=== PATIENT | female | born 1955 | race American Indian/Alaskan Native ===

== ENCOUNTER 2017-02-03 19:52 | Inpatient (IN) | payer BC, MEDICARE ==
--- NOTE | 2017-02-03 19:56 | C.PDOC ---
History Of Present Illness Patient presents to the ER with a complaint of intermittent chest pain since this morning. Patient was recently treated for bronchitis and reports having a cough with chest pain; due to these symptoms the patient called 911. Patient was given 1 sublingual nitrate and 1 325 aspirin in the field; ALS sent an EKG that showed sinus tachycardia with nonspecific changes. Patient denies fever, chills or other physical complaints at this time. Time Seen by Provider: 02/03/17 19:56 Chief Complaint (Nursing): Shortness Of Breath History Per: Patient, EMS History/Exam Limitations: no limitations Onset/Duration Of Symptoms: Hrs Current Symptoms Are (Timing): Still Present Initiating Event: Other (Not known) Exacerbating Factor(s): Coughing Current Respiratory Medications: See Home Med List Severity: Moderate Pain Scale Rating Of: 4 Associated Symptoms: Chest Pain, Other (Cough). denies: Fever, Chills Recent travel outside of the [place]: No Past Medical History Reviewed: Historical Data, Nursing Documentation, Vital Signs Vital Signs: Last Vital Signs Temp 99.1 F 02/03/17 19:55 Pulse 121 H 02/03/17 22:00 Resp 32 H 02/03/17 22:00 BP 206/100 H 02/03/17 22:00 Pulse Ox 98 02/03/17 22:00 - Medical History PMH: No Chronic Diseases Surgical History: No Surg Hx Family History: States: No Known Family Hx Review Of Systems Constitutional: Negative for: Fever, Chills Eyes: Negative for: Vision Change Cardiovascular: Positive for: Chest Pain Respiratory: Positive for: Cough Gastrointestinal: Negative for: Nausea, Vomiting Genitourinary: Negative for: Dysuria, Incontinence, Hematuria Musculoskeletal: Negative for: Shoulder Pain, Arm Pain, Back Pain Skin: Negative for: Rash Neurological: Negative for: Weakness, Numbness Physical Exam - Physical Exam Appears: Non-toxic, Other (Morbidly obese) Skin: Warm, Dry Oral Mucosa: Moist Chest: Symmetrical, Tenderness (Mild reproducible anterior wall) Cardiovascular: Rhythm Regular, No Murmur Respiratory: No Rales, Rhonchi (Scattered at bases), No Wheezing Gastrointestinal/Abdominal: Soft, No Tenderness Neurological/Psych: Oriented x3 ED Course And Treatment - Laboratory Results Result Diagrams: 02/03/17 20:08 02/03/17 20:08 ECG: Interpreted By Me, Viewed By Me ECG Rhythm: Sinus Tachycardia (119), Nonspecific Changes (lvh) O2 Sat by Pulse Oximetry: 100 Pulse Ox Interpretation: Normal - Radiology CXR: Interpreted by Me, Viewed By Me CXR Interpretation: Yes: Other (top nl heart, poss lll infiltrate, small b/l effusions). No: COPD, Fracture, Pnemothorax Progress Note: spoke with dr farmer at 7:48 PM, as well as sent the ekg. Repeat ekg sent to him as well. Pt does not meet criteria for code heart. Blood work , CXR, EKG and urinalysis ordered. Duoneb administered. Critical Care Time - Critical Care Note Total Time (in mins): 30 Documented critical care: time excludes all time spent performing seperately billable procedures. Disposition Discussed With DrJohn: Mt Perdomo Comment: accepted the pt on his service and took over the care at 10:12 PM Doctor Will See Patient In The: Hospital Counseled Patient/Family Regarding: Studies Performed, Diagnosis - Disposition Disposition: HOSPITALIZED Disposition Time: 19:56 Condition: FAIR - POA Present On Arrival: Poor Glycemic Control - Clinical Impression Clinical Impression: Chest pain - Scribe Statement The provider has reviewed the documentation as recorded by the Scribe Hao Strauss All medical record entries made by the Scribe were at my direction and personally dictated by me. I have reviewed the chart and agree that the record accurately reflects my personal performance of the history, physical exam, medical decision making, and the department course for this patient. I have also personally directed, reviewed, and agree with the discharge instructions and disposition. Decision To Admit - Pt Status Changed To: Hospital Disposition Of: Observation - . Bed Request Type: Telemetry Admitting Physician: Mt Perdomo Patient Diagnosis: Chest pain
[2017-02-03 20:00] VITALS: BMI 43.2
[2017-02-03 20:12] LABS: BASO % 0.3 % (0.0-2.0); EOS # 0.2 K/uL (0.0-0.7); EOS % 1.7 % (0.0-4.0); HEMATOCRIT 37.4 % (34.0-47.0); LYMPH # 1.2 K/uL (1.0-4.3); LYMPH % 11.9 % (20.0-40.0); MEAN CELL VOLUME 89.2 fL (81.0-99.0); MEAN CORPUSCULAR HGB CONC 32.6 g/dL (33.0-37.0); MEAN PLATELET VOLUME 7.1 fL (7.2-11.7); MONO # 0.7 K/uL (0.0-0.8); NRBC % 0.2 % (0.0-2.0); RED CELL DISTRIBUTION WIDTH 15.5 % (11.5-14.5); WHITE BLOOD COUNT 9.7 K/uL (4.8-10.8)
[2017-02-03] MEDS: Albuterol-Ipratrop 3 mg / 0.5 (3 ml) UD IH SCH ×3 (20:15→20:50)
[2017-02-03] MEDS ORDERED: Albuterol-Ipratrop 3 mg / 0.5 (3 ml) UD ONE (20:18)
[2017-02-03 20:21] LABS: INR 1.1
[2017-02-03 20:32] LABS: VENOUS BLOOD GAS BASE EXCESS 3.3 mmol/L (0.0-2.0); VENOUS BLOOD GAS PCO2 41 mmHg (40-60); VENOUS BLOOD PH 7.44 (7.32-7.43)
[2017-02-03 20:36] LABS: CHLORIDE 104 mmol/L (98-107)
[2017-02-03 20:37] LABS: POTASSIUM 3.2 mmol/L (3.6-5.2); SODIUM 140 mmol/L (132-148)
[2017-02-03 20:39] LABS: BILIRUBIN,TOTAL 0.5 mg/dL (0.2-1.3); CARBON DIOXIDE 25 mmol/L (22-30); GFR AFRICAN-AMERICAN > 60
[2017-02-03 20:40] LABS: ALB/GLOB RATIO 1.3 (1.0-2.1); ALKALINE PHOSPHATASE 98 U/L (38-126); ALT/SGPT 41 U/L (9-52); AST/SGOT 26 U/L (14-36); BLOOD UREA NITROGEN 18 mg/dL (7-17); CALCIUM 9.7 mg/dl (8.6-10.4); GLUCOSE,RANDOM 113 mg/dL (65-105); TOTAL PROTEIN 7.4 g/dL (6.3-8.3)
[2017-02-03 20:41] LABS: RBC URINE 6 /hpf (0-3); URINE BACTERIA OCC (<OCC); URINE BILIRUBIN NEGATIVE (NEGATIVE); URINE BLOOD 1+ (NEGATIVE); URINE COLOR Straw (YELLOW); URINE GLUCOSE (UA) NORMAL (Normal); URINE KETONE NEGATIVE (NEGATIVE); URINE LEUKOCYTE ESTERASE 3+ Leu/uL (Negative); URINE PROTEIN NEGATIVE (NEGATIVE); URINE UROBILINOGEN NORMAL mg/dL (0.2-1.0); WBC URINE 14 /hpf (0-5)
[2017-02-03] MEDS ORDERED: Labetalol 25mg/5ml Syringe IVP STA (21:55)
[2017-02-03] MEDS ORDERED: Labetalol 25mg/5ml Syringe ONE (21:59)
[2017-02-03] MEDS ORDERED: Enoxaparin 40 mg Syringe SC STA (22:11)
[2017-02-03] MEDS ORDERED: Enoxaparin 60 mg Syringe ONE (22:15)
[2017-02-03] MEDS ORDERED: Nitroglycerin 2% Ointment Foilpak UD TOP STA (22:50)
[2017-02-03] MEDS ORDERED: Nitroglycerin 2% Ointment Foilpak UD TOP ONE (22:53)
--- NOTE | 2017-02-03 23:21 | CP.PCM.HP ---
History of Present Illness - History of Present Illness History of Present Illness: Cheif complain: Chest pain HPI: 61 year old female patient presents to the ER with a complaint of intermittent chest pain since this morning. Patient was recently treated for bronchitis and reports having a cough with chest pain; due to these symptoms the patient called 911. Patient was given 1 sublingual nitrate and 1 325 aspirin in the field; ALS sent an EKG that showed sinus tachycardia with nonspecific changes. Patient denies fever, chills or other physical complaints at this time. Past Patient History - Past Social History Smoking Status: Light Smoker < 10 Cigarettes Daily - CARDIAC Hx Hypertension: Yes - PULMONARY Hx Asthma: No Hx Bronchitis: Yes - NEUROLOGICAL Hx Neurological Disorder: No - HEENT Hx HEENT Problems: No - RENAL Hx Chronic Kidney Disease: No - ENDOCRINE/METABOLIC Hx Endocrine Disorders: No - HEMATOLOGICAL/ONCOLOGICAL Hx Blood Disorders: No - INTEGUMENTARY Hx Dermatological Problems: No - MUSCULOSKELETAL/RHEUMATOLOGICAL Hx Musculoskeletal Disorders: No Hx Arthritis: Yes - GASTROINTESTINAL Hx Gastrointestinal Disorders: No - GENITOURINARY/GYNECOLOGICAL Hx Genitourinary Disorders: No - PSYCHIATRIC Hx Psychophysiologic Disorder: No Hx Substance Use: No Meds Allergies/Adverse Reactions: Allergies Allergy/AdvReac Type Severity Reaction Status Date / Time No Known Allergies Allergy Verified 02/03/17 19:59 Results - Vital Signs Recent Vital Signs: Last Vital Signs Temp 99.1 F 02/03/17 19:55 Pulse 95 H 02/03/17 23:20 Resp 39 H 02/03/17 23:20 BP 194/95 H 02/03/17 23:20 Pulse Ox 100 02/03/17 23:20 - Labs Result Diagrams: 02/03/17 20:08 02/03/17 20:08
[2017-02-04] MEDS ORDERED: Nitroglycerin 2% Ointment Foilpak UD TOP STA (01:34)
[2017-02-04] MEDS ORDERED: Albuterol-Ipratrop 3 mg / 0.5 (3 ml) UD INH STA (01:35)
--- NOTE | 2017-02-04 01:39 | PCM.RRTMUL ---
SYSTEMS ANALYST ENGINEER Nurses Assessment - Situation SYSTEMS ANALYST ENGINEER Responder Arrival Time:: 01:22 Room Number:: [id number] SYSTEMS ANALYST ENGINEER Reason for Call: Chest Pain, Hypertension - IV IV Inserted during SYSTEMS ANALYST ENGINEER?: No - Respiratory Oxygen Delivery Method:: Nasal Cannula Received Nebulizer Treatments:: Yes - Diagnostic Test Ordered EKG:: Yes - Stat Labs Ordered SYSTEMS ANALYST ENGINEER Stat Labs Ordered:: TROPONIN - Vital Signs Blood Pressure:: 229/114 (repeat 207/104) Pulse Rate:: 97 Oxygen Saturation:: 100 - Kat Coma Scale Coma Scale Eye Opening:: Spontaneous Coma Scale Motor:: Obeys Commands Movement - B) Neurological Status (Select all that apply): Alert, Responsive, Oriented, Verbal, Follows Commands - C) Respiratory Oxygen Delivery Method: Nasal Cannula @L/min - Constitutional Appears: Non-toxic, In Acute Distress - Head Head Exam: ATRAUMATIC, NORMAL INSPECTION - Eyes Eye Exam: EOMI, Normal appearance, PERRL - Respiratory Exam Respiratory Exam: Wheezes. absent: Respiratory Distress - Cardiovascular Exam Cardiovascular Exam: Tachycardia, REGULAR RHYTHM, +S1, +S2 - GI/Abdominal Exam GI & Abdominal Exam: Soft, Normal Bowel Sounds. absent: Distended, Firm, Guarding, Tenderness - Neurological Exam Neurological Exam: Alert, Awake, Oriented x3 Plan - B. Assessment of Findings&Treatment Plan Patient was complaints of chest pain and headache which she states she had on admission. Denied visual changes. EKG - slight depression in V4-V6 f/u VIET Nitro 2% paste given x 1 dose. Repeat BP 190s. Repeat 185/97. Patient given Hydralazine 10mg IVP. Will monitor. Patient was noted to be wheezing. Was given stat Duoneb treatment. K was low 3.2. Replaced with 40 meq KCL solution x 1 dose. Patient noted to have UTI by UA. Urine culture sent. Complains of urinary frequency x 1 day. Denies dysuria
[2017-02-04] MEDS ORDERED: Potassium Chloride 20 mEq/15 ml LIQ UD PO ONE (01:50)
[2017-02-04] MEDS: DiphenhydrAMINE 50 mg/ml Inj IVP STA ×2 (02:04→02:06)
[2017-02-04] MEDS: Albuterol-Ipratrop 3 mg / 0.5 (3 ml) UD INH PRN ×2 (03:49→07:59)
[2017-02-04] MEDS ORDERED: Labetalol 25mg/5ml Syringe IVP STA (05:16)
[2017-02-04] MEDS ORDERED: guaiFENesin DM 200 mg-20 mg/10 ml UD PO STA (06:09)
[2017-02-04 08:45] LABS: CHLORIDE 102 mmol/L (98-107)
[2017-02-04] MEDS ORDERED: MethylPREDNISolone 40 mg Vial IVP ONE (08:45)
[2017-02-04 08:46] LABS: POTASSIUM 3.7 mmol/L (3.6-5.2); SODIUM 138 mmol/L (132-148)
--- NOTE | 2017-02-04 08:47 | RAD ---
PROCEDURE: CHEST RADIOGRAPH, 1 VIEW HISTORY: chest pain COMPARISON: None available. FINDINGS: LUNGS: Moderate venous congestion with bibasilar airspace opacities and small bilateral pleural effusions. PLEURA: As above. CARDIOVASCULAR: Cardiomegaly. OSSEOUS STRUCTURES: Degenerative changes in the spine and shoulders. VISUALIZED UPPER ABDOMEN: Normal. OTHER FINDINGS: None. IMPRESSION: Moderate venous congestion with bibasilar airspace opacities and small bilateral pleural effusions.
[2017-02-04 08:48] LABS: CARBON DIOXIDE 26 mmol/L (22-30); GFR AFRICAN-AMERICAN > 60
[2017-02-04 08:49] LABS: BLOOD UREA NITROGEN 13 mg/dL (7-17); CALCIUM 8.8 mg/dl (8.6-10.4); GLUCOSE,RANDOM 164 mg/dL (65-105)
[2017-02-04] MEDS: Pantoprazole 40 mg EC Tab PO SCH (09:46)
[2017-02-04] MEDS: Enoxaparin 40 mg Syringe SC SCH (09:48)
[2017-02-04] MEDS: Albuterol-Ipratrop 3 mg / 0.5 (3 ml) UD INH SCH ×2 (13:22→19:00)
[2017-02-04] MEDS: MethylPREDNISolone 40 mg Vial IVP SCH ×2 (14:02→21:39)
[2017-02-04] MEDS ORDERED: Azithromycin 500mg/250ML NS 500 MG/250 ML BAG IVPB SCH (14:15)
[2017-02-04] MEDS: Azithromycin 500 MG in Sodium Chloride 0.9% 250 ML IVPB SCH (15:16)
[2017-02-04] MEDS: Promethazine DM 6.25 mg-15 mg/5 ml Syrup PO PRN ×2 (15:17→21:39)
--- NOTE | 2017-02-04 19:58 | CP.PCM.CON ---
History of Present Illness - History of Present Illness History of Present Illness: 61 year old with HTN, ? COPD presented through the ED with SOB, atypical pain, non significant EKG changes, f/u with [facility], EKG echo. Prior history of rheumatoid arthritis, smoker. Explains the pain gets relieved by drinking water and taking stomach medication Review of Systems - Review of Systems Systems not reviewed;Unavailable: Acuity of Condition - Constitutional Constitutional: Anorexia, Weakness - EENT Eyes: absent: Discharge, Exophthalmos Nose/Mouth/Throat: Nasal Congestion. absent: Epistaxis - Cardiovascular Cardiovascular: Chest Pain. absent: Acrocyanosis, Diaphoresis, Dyspnea, Palpitations, Syncope - Respiratory Respiratory: Cough. absent: Dyspnea, Hemoptysis - Gastrointestinal Gastrointestinal: absent: Abdominal Pain, Diarrhea, Loose Stools, Nausea, Vomiting - Genitourinary Genitourinary: absent: Change in Urinary Stream Past Patient History - Past Social History Smoking Status: Never Smoked - CARDIAC Hx Hypertension: Yes - PULMONARY Hx Asthma: No Hx Bronchitis: Yes - NEUROLOGICAL Hx Neurological Disorder: No - HEENT Hx HEENT Problems: No - RENAL Hx Chronic Kidney Disease: No - ENDOCRINE/METABOLIC Hx Endocrine Disorders: No - HEMATOLOGICAL/ONCOLOGICAL Hx Blood Disorders: No - INTEGUMENTARY Hx Dermatological Problems: No - MUSCULOSKELETAL/RHEUMATOLOGICAL Hx Musculoskeletal Disorders: No Hx Arthritis: Yes Hx Falls: No - GASTROINTESTINAL Hx Gastrointestinal Disorders: No - GENITOURINARY/GYNECOLOGICAL Hx Genitourinary Disorders: No - PSYCHIATRIC Hx Psychophysiologic Disorder: No Hx Substance Use: No Meds Allergies/Adverse Reactions: Allergies Allergy/AdvReac Type Severity Reaction Status Date / Time No Known Allergies Allergy Verified 02/03/17 19:59 - Medications Medications: Current Medications Albuterol/Ipratropium (Duoneb 3 Mg/0.5 Mg (3 Ml) Ud) 3 ml INH RQ6 [facility] Last Admin: 02/04/17 19:00 Dose: 3 ml Amlodipine Besylate (Norvasc) 5 mg PO DAILY [facility] Aspirin (Ecotrin) 81 mg PO DAILY [facility] Last Admin: 02/04/17 09:46 Dose: 81 mg Cephalexin Monohydrate (Keflex) 500 mg PO Q8 [facility] Last Admin: 02/04/17 14:02 Dose: 500 mg Enoxaparin Sodium (Lovenox) 40 mg SC DAILY [facility] Last Admin: 02/04/17 09:48 Dose: 40 mg Hydralazine HCl (Apresoline) 25 mg PO Q8H [facility] Last Admin: 02/04/17 18:07 Dose: 25 mg Azithromycin 500 mg/ Sodium (Chloride) 250 mls @ 167 mls/hr IVPB Q24H [facility] Last Admin: 02/04/17 15:16 Dose: 167 mls/hr Ibuprofen (Motrin Tab) 600 mg PO TID PRN PRN Reason: Headache Last Admin: 02/04/17 09:46 Dose: 600 mg Losartan Potassium (Cozaar) 100 mg PO DAILY [facility] Last Admin: 02/04/17 09:48 Dose: 100 mg Methylprednisolone (Solu-Medrol) 40 mg IVP Q8H [facility] Last Admin: 02/04/17 14:02 Dose: 40 mg Pantoprazole Sodium (Protonix Ec Tab) 40 mg PO DAILY [facility] Last Admin: 02/04/17 09:46 Dose: 40 mg Pneumococcal Polyvalent Vaccine (Pneumovax 23 Vaccine) 0.5 ml IM .ONCE ONE Stop: 02/06/17 10:01 Promethazine HCl/Dextromethorphan (Phenergan Dm Syrup) 5 ml PO Q6H PRN PRN Reason: Cough Last Admin: 02/04/17 15:17 Dose: 5 ml Rosuvastatin Calcium (Crestor) 20 mg PO HS [facility] Fluticasone/Salmeterol (Advair Diskus 250/50) 1 puff INH RQ12 [facility] Physical Exam - Constitutional Appears: Non-toxic - Head Exam Head Exam: ATRAUMATIC - Eye Exam Eye Exam: EOMI - ENT Exam ENT Exam: Mucous Membranes Moist - Neck Exam Neck exam: Negative for: Lymphadenopathy, Thyromegaly - Respiratory Exam Respiratory Exam: Clear to Auscultation Bilateral, Rhonchi. absent: Rales - Cardiovascular Exam Cardiovascular Exam: REGULAR RHYTHM. absent: Systolic Murmur - GI/Abdominal Exam GI & Abdominal Exam: Normal Bowel Sounds. absent: Organomegaly - Rectal Exam Rectal Exam: Deferred - Extremities Exam Extremities exam: Positive for: normal capillary refill. Negative for: calf tenderness - Neurological Exam Neurological exam: Alert, Oriented x3 - Psychiatric Exam Psychiatric exam: Normal Mood - Skin Skin Exam: Dry Results - Vital Signs Recent Vital Signs: Last Vital Signs Temp 98.3 F 02/04/17 15:35 Pulse 102 H 02/04/17 16:00 Resp 24 02/04/17 15:35 BP 167/78 H 02/04/17 15:35 Pulse Ox 95 02/04/17 15:35 - Labs Result Diagrams: 02/03/17 20:08 02/04/17 08:29 Assessment & Plan (1) HTN (hypertension) Status: Acute Comment: r/o MD, INR, Echo, EKG (2) Chest pain Status: Acute Comment: add CA roge
[2017-02-04] MEDS ORDERED: Oxycodone/Acetaminophen 5/325 mg Tab PO PRN (19:59)
[2017-02-04] MEDS: Fluticasone-Salmeterol 250-50mcg Diskus INH SCH (22:16)
--- NOTE | 2017-02-04 22:45 | CP.PCM.PN ---
Subjective - Date & Time of Evaluation Date of Evaluation: 02/04/17 Objective - Vital Signs/Intake and Output Vital Signs (last 24 hours): Temp Pulse Resp BP Pulse Ox 98.3 F 102 H 24 167/78 H 95 02/04/17 15:35 02/04/17 16:00 02/04/17 15:35 02/04/17 15:35 02/04/17 15:35 - Medications Medications: Current Medications Albuterol/Ipratropium (Duoneb 3 Mg/0.5 Mg (3 Ml) Ud) 3 ml INH RQ6 [facility] Last Admin: 02/04/17 19:00 Dose: 3 ml Amlodipine Besylate (Norvasc) 5 mg PO DAILY [facility] Aspirin (Ecotrin) 81 mg PO DAILY [facility] Last Admin: 02/04/17 09:46 Dose: 81 mg Cephalexin Monohydrate (Keflex) 500 mg PO Q8 [facility] Last Admin: 02/04/17 21:39 Dose: 500 mg Enoxaparin Sodium (Lovenox) 40 mg SC DAILY [facility] Last Admin: 02/04/17 09:48 Dose: 40 mg Hydralazine HCl (Apresoline) 25 mg PO Q8H [facility] Last Admin: 02/04/17 18:07 Dose: 25 mg Azithromycin 500 mg/ Sodium (Chloride) 250 mls @ 167 mls/hr IVPB Q24H [facility] Last Admin: 02/04/17 15:16 Dose: 167 mls/hr Ibuprofen (Motrin Tab) 600 mg PO TID PRN PRN Reason: Headache Last Admin: 02/04/17 09:46 Dose: 600 mg Losartan Potassium (Cozaar) 100 mg PO DAILY [facility] Last Admin: 02/04/17 09:48 Dose: 100 mg Methylprednisolone (Solu-Medrol) 40 mg IVP Q8H [facility] Last Admin: 02/04/17 21:39 Dose: 40 mg Oxycodone/Acetaminophen (Percocet 5/325 Mg Tab) 1 tab PO Q4 PRN PRN Reason: Pain, moderate (4-7) Stop: 02/07/17 20:00 Pantoprazole Sodium (Protonix Ec Tab) 40 mg PO DAILY [facility] Last Admin: 02/04/17 09:46 Dose: 40 mg Pneumococcal Polyvalent Vaccine (Pneumovax 23 Vaccine) 0.5 ml IM .ONCE ONE Stop: 02/06/17 10:01 Promethazine HCl/Dextromethorphan (Phenergan Dm Syrup) 5 ml PO Q6H PRN PRN Reason: Cough Last Admin: 02/04/17 21:39 Dose: 5 ml Rosuvastatin Calcium (Crestor) 20 mg PO HS [facility] Last Admin: 02/04/17 21:39 Dose: 20 mg Fluticasone/Salmeterol (Advair Diskus 250/50) 1 puff INH RQ12 [facility] Last Admin: 02/04/17 22:16 Dose: Not Given - Labs Labs: PT 11.9 SECONDS (9.7-12.2) 02/03/17 20:08 INR 1.1 02/03/17 20:08 APTT 32 SECONDS (21-34) 02/03/17 20:08
[2017-02-04 23:56] VITALS: RESP 20
[2017-02-05] MEDS: Albuterol-Ipratrop 3 mg / 0.5 (3 ml) UD INH SCH ×4 (02:33→19:48)
[2017-02-05] MEDS: MethylPREDNISolone 40 mg Vial IVP SCH ×4 (05:06→22:04)
[2017-02-05] MEDS: Fluticasone-Salmeterol 250-50mcg Diskus INH SCH ×2 (07:57→19:50)
[2017-02-05] MEDS: Enoxaparin 40 mg Syringe SC SCH (09:17)
[2017-02-05] MEDS: Pantoprazole 40 mg EC Tab PO SCH (09:20)
--- NOTE | 2017-02-05 11:45 | CP.PCM.PN ---
Subjective - Date & Time of Evaluation Date of Evaluation: 02/05/17 Time of Evaluation: 11:00 - Subjective Subjective: No further pain, no EKG changes, echocardiogram poor quality however normal left ventricular contractility, diastolic dysfunction, no aortic stenosis and no pericardial disease. Stress test, exercised for 2 minutes of Pierce protocol the test stopped because of shortness of breath no chest pain, no acute EKG changes Follow with the [facility] As Outpatient Objective - Vital Signs/Intake and Output Vital Signs (last 24 hours): Temp Pulse Resp BP Pulse Ox 97.7 F 94 H 20 194/99 H 96 02/05/17 09:12 02/05/17 09:12 02/05/17 09:12 02/05/17 09:12 02/05/17 09:12 Intake and Output: 02/05/17 02/05/17 06:59 18:59 Intake Total 240 Balance 240 - Medications Medications: Current Medications Albuterol/Ipratropium (Duoneb 3 Mg/0.5 Mg (3 Ml) Ud) 3 ml INH RQ6 [facility] Last Admin: 02/05/17 07:30 Dose: 3 ml Amlodipine Besylate (Norvasc) 5 mg PO DAILY [facility] Last Admin: 02/05/17 09:20 Dose: 5 mg Aspirin (Ecotrin) 81 mg PO DAILY [facility] Last Admin: 02/05/17 09:18 Dose: 81 mg Cephalexin Monohydrate (Keflex) 500 mg PO Q8 [facility] Last Admin: 02/05/17 05:12 Dose: 500 mg Enoxaparin Sodium (Lovenox) 40 mg SC DAILY [facility] Last Admin: 02/05/17 09:17 Dose: 40 mg Hydralazine HCl (Apresoline) 25 mg PO Q8H [facility] Last Admin: 02/05/17 09:20 Dose: 25 mg Azithromycin 500 mg/ Sodium (Chloride) 250 mls @ 167 mls/hr IVPB Q24H [facility] Last Admin: 02/04/17 15:16 Dose: 167 mls/hr Ibuprofen (Motrin Tab) 600 mg PO TID PRN PRN Reason: Headache Last Admin: 02/04/17 09:46 Dose: 600 mg Losartan Potassium (Cozaar) 100 mg PO DAILY [facility] Last Admin: 02/05/17 09:20 Dose: 100 mg Methylprednisolone (Solu-Medrol) 40 mg IVP Q12 [facility] Last Admin: 02/05/17 11:00 Dose: Not Given Oxycodone/Acetaminophen (Percocet 5/325 Mg Tab) 1 tab PO Q4 PRN PRN Reason: Pain, moderate (4-7) Stop: 02/07/17 20:00 Pantoprazole Sodium (Protonix Ec Tab) 40 mg PO DAILY [facility] Last Admin: 02/05/17 09:20 Dose: 40 mg Pneumococcal Polyvalent Vaccine (Pneumovax 23 Vaccine) 0.5 ml IM .ONCE ONE Stop: 02/06/17 10:01 Promethazine HCl/Dextromethorphan (Phenergan Dm Syrup) 5 ml PO Q6H PRN PRN Reason: Cough Last Admin: 02/04/17 21:39 Dose: 5 ml Rosuvastatin Calcium (Crestor) 20 mg PO HS [facility] Last Admin: 02/04/17 21:39 Dose: 20 mg Fluticasone/Salmeterol (Advair Diskus 250/50) 1 puff INH RQ12 [facility] Last Admin: 02/05/17 07:57 Dose: 1 puff - Labs Labs: PT 11.9 SECONDS (9.7-12.2) 02/03/17 20:08 INR 1.1 02/03/17 20:08 APTT 32 SECONDS (21-34) 02/03/17 20:08 - Constitutional Appears: Non-toxic - Head Exam Head Exam: ATRAUMATIC - Eye Exam Eye Exam: EOMI - ENT Exam ENT Exam: Mucous Membranes Moist - Neck Exam Neck Exam: absent: Lymphadenopathy, Thyromegaly - Respiratory Exam Respiratory Exam: Clear to Ausculation Bilateral, Rhonchi - Cardiovascular Exam Cardiovascular Exam: REGULAR RHYTHM. absent: Murmur - GI/Abdominal Exam GI & Abdominal Exam: Normal Bowel Sounds. absent: Organomegaly - Rectal Exam Rectal Exam: Deferred - Extremities Exam Extremities Exam: Normal Capillary Refill. absent: Calf Tenderness - Neurological Exam Neurological Exam: Alert, Oriented x3 - Psychiatric Exam Psychiatric exam: Normal Mood - Skin Skin Exam: Dry Assessment and Plan (1) HTN (hypertension) Assessment & Plan: Stable with 120/80 on stress test Status: Acute (2) Chest pain Assessment & Plan: No NC, unremarkable echocardiogram, no acute ischemia on EKG. Follow-up with [facility] [place] [place] as [place]. Unlikely PE or dissection clinically. Status: Acute
[2017-02-05] MEDS: Azithromycin 500 MG in Sodium Chloride 0.9% 250 ML IVPB SCH (14:35)
[2017-02-05] MEDS: Promethazine DM 6.25 mg-15 mg/5 ml Syrup PO PRN (22:04)
--- NOTE | 2017-02-05 23:07 | CP.PCM.PN ---
Subjective - Date & Time of Evaluation Date of Evaluation: 02/05/17 Objective - Vital Signs/Intake and Output Vital Signs (last 24 hours): Temp Pulse Resp BP Pulse Ox 98.0 F 78 20 127/68 99 02/05/17 17:34 02/05/17 17:34 02/05/17 17:34 02/05/17 17:34 02/05/17 17:34 Intake and Output: 02/05/17 02/06/17 18:59 06:59 Intake Total 100 Balance 100 - Medications Medications: Current Medications Albuterol/Ipratropium (Duoneb 3 Mg/0.5 Mg (3 Ml) Ud) 3 ml INH RQ6 [facility] Last Admin: 02/05/17 19:48 Dose: 3 ml Amlodipine Besylate (Norvasc) 5 mg PO DAILY [facility] Last Admin: 02/05/17 09:20 Dose: 5 mg Aspirin (Ecotrin) 81 mg PO DAILY [facility] Last Admin: 02/05/17 09:18 Dose: 81 mg Cephalexin Monohydrate (Keflex) 500 mg PO Q8 [facility] Last Admin: 02/05/17 22:04 Dose: 500 mg Enoxaparin Sodium (Lovenox) 40 mg SC DAILY [facility] Last Admin: 02/05/17 09:17 Dose: 40 mg Hydralazine HCl (Apresoline) 25 mg PO Q8H [facility] Last Admin: 02/05/17 17:45 Dose: 25 mg Azithromycin 500 mg/ Sodium (Chloride) 250 mls @ 167 mls/hr IVPB Q24H [facility] Last Admin: 02/05/17 14:35 Dose: 167 mls/hr Ibuprofen (Motrin Tab) 600 mg PO TID PRN PRN Reason: Headache Last Admin: 02/04/17 09:46 Dose: 600 mg Losartan Potassium (Cozaar) 100 mg PO DAILY [facility] Last Admin: 02/05/17 09:20 Dose: 100 mg Methylprednisolone (Solu-Medrol) 40 mg IVP Q12 [facility] Last Admin: 02/05/17 22:04 Dose: 40 mg Oxycodone/Acetaminophen (Percocet 5/325 Mg Tab) 1 tab PO Q4 PRN PRN Reason: Pain, moderate (4-7) Stop: 02/07/17 20:00 Pantoprazole Sodium (Protonix Ec Tab) 40 mg PO DAILY [facility] Last Admin: 02/05/17 09:20 Dose: 40 mg Pneumococcal Polyvalent Vaccine (Pneumovax 23 Vaccine) 0.5 ml IM .ONCE ONE Stop: 02/06/17 10:01 Promethazine HCl/Dextromethorphan (Phenergan Dm Syrup) 5 ml PO Q6H PRN PRN Reason: Cough Last Admin: 02/05/17 22:04 Dose: 5 ml Rosuvastatin Calcium (Crestor) 20 mg PO HS [facility] Last Admin: 02/05/17 22:04 Dose: 20 mg Fluticasone/Salmeterol (Advair Diskus 250/50) 1 puff INH RQ12 [facility] Last Admin: 02/05/17 19:50 Dose: 1 puff - Labs Labs: PT 11.9 SECONDS (9.7-12.2) 02/03/17 20:08 INR 1.1 02/03/17 20:08 APTT 32 SECONDS (21-34) 02/03/17 20:08
--- NOTE | 2017-02-06 00:27 | CARD ---
APPROVED REPORT EKG Measurement Heart [id number] <Conclusion> Sinus tachycardia Biatrial enlargement Left ventricular hypertrophy Cannot rule out Septal infarct, age undetermined Abnormal ECG
[2017-02-06] MEDS: Albuterol-Ipratrop 3 mg / 0.5 (3 ml) UD INH SCH ×3 (01:12→14:08)
[2017-02-06] MEDS: Fluticasone-Salmeterol 250-50mcg Diskus INH SCH (07:39)
[2017-02-06 08:27] VITALS: TEMP 97.8; O2SAT 96
[2017-02-06] MEDS ORDERED: Nitroglycerin 2% Ointment Foilpak UD TOP STA (08:39)
--- NOTE | 2017-02-06 09:19 | CARD ---
APPROVED REPORT EXAM: Two-dimensional and M-mode echocardiogram with Doppler and color Doppler. Other Information Quality : GoodRhythm : NSR INDICATION Dyspnea Chest Pain SOB RISK FACTORS Hypertension M-Mode DIMENSIONS RVDd0.94 (2.1-3.2cm)Left Atrium (MM)3.75 (2.5-4.0cm) IVSd0.70 (0.7-1.1cm)Aortic Root2.69 (2.2-3.7cm) LVDd5.35 (4.0-5.6cm)Aortic Cusp Exc.1.41 (1.5-2.0cm) PWd0.98 (0.7-1.1cm)FS (%) 28 % LVDs3.83 (2.0-3.8cm)LVEF (%)54 (>50%) Aortic Valve AoV Peak Sntghsry379.5cm/Joyce Peak GR.11mmHg Mitral Valve MV E Bxinxaqj83.1cm/sMV A Cqfwdprw514.6cm/sE/A ratio0.7 TDI E/Lateral E'0.0E/Medial E'0.0 Tricuspid Valve TR Peak Buxrcphy785ai/sTR Peak Gr.99ikEfPEGV67zwCv LEFT VENTRICLE The left ventricle is normal size. There is borderline to mild concentric left ventricular hypertrophy. The left ventricular function is normal. The left ventricular ejection fraction is within the normal range. There is normal LV segmental wall motion. Transmitral Doppler flow pattern is Grade I-abnormal relaxation pattern. RIGHT VENTRICLE The right ventricle is normal size. There is normal right ventricular wall thickness. The right ventricular systolic function is normal. ATRIA The left atrium size is normal. The right atrium size is normal. The interatrial septum is intact with no evidence for an atrial septal defect. AORTIC VALVE AV NOT CLEARLY VISUALIZED No aortic regurgitation is present. There is no aortic valvular stenosis. MITRAL VALVE The mitral valve is normal in structure. There is no evidence of mitral valve prolapse. There is no mitral valve stenosis. There is no mitral valve regurgitation noted. TRICUSPID VALVE The tricuspid valve is normal in structure. There is trace to mild tricuspid regurgitation. There is no tricuspid valve prolapse or vegetation. There is no tricuspid valve stenosis. PULMONIC VALVE PV NWV There is no pulmonic valvular regurgitation. There is no pulmonic valvular stenosis. GREAT VESSELS The aortic root is normal in size. The IVC is normal in size and collapses >50% with inspiration. PERICARDIAL EFFUSION There is no pericardial effusion. There is no pleural effusion. <Conclusion> TECH DIFFICULT STUDY The left ventricular function is normal. There is borderline to mild concentric left ventricular hypertrophy. Transmitral Doppler flow pattern is Grade I-abnormal relaxation pattern. The interatrial septum is intact with no evidence for an atrial septal defect. AV NOT CLEARLY VISUALIZED PV NWV There is trace to mild tricuspid regurgitation.
[2017-02-06] MEDS ORDERED: Pneumococcal 23-Valent Vaccine IM ONE (10:00)
[2017-02-06 10:30] VITALS: BP 172/94
[2017-02-06] MEDS: Enoxaparin 40 mg Syringe SC SCH (10:32)
[2017-02-06] MEDS: Pantoprazole 40 mg EC Tab PO SCH (10:32)
[2017-02-06] MEDS: MethylPREDNISolone 40 mg Vial IVP SCH (10:33)
--- NOTE | 2017-02-06 13:27 | CP.PCM.PN ---
Subjective - Date & Time of Evaluation Date of Evaluation: 02/06/17 Time of Evaluation: 12:00 - Subjective Subjective: Pt seen today states feels much better, sob , and cough improved . denies any chest pain, headache , N/V/D abdominal pain no overnight events reported by RN oob ambulating without sob Objective - Vital Signs/Intake and Output Vital Signs (last 24 hours): Temp Pulse Resp BP Pulse Ox 97.8 F 86 20 172/94 H 96 02/06/17 08:26 02/06/17 10:30 02/06/17 08:26 02/06/17 10:30 02/06/17 08:26 - Medications Medications: Current Medications Albuterol/Ipratropium (Duoneb 3 Mg/0.5 Mg (3 Ml) Ud) 3 ml INH RQ6 [facility] Last Admin: 02/06/17 07:40 Dose: 3 ml Amlodipine Besylate (Norvasc) 5 mg PO DAILY [facility] Last Admin: 02/06/17 10:33 Dose: 5 mg Aspirin (Ecotrin) 81 mg PO DAILY [facility] Last Admin: 02/06/17 10:33 Dose: 81 mg Cephalexin Monohydrate (Keflex) 500 mg PO Q8 [facility] Last Admin: 02/06/17 13:24 Dose: 500 mg Enoxaparin Sodium (Lovenox) 40 mg SC DAILY [facility] Last Admin: 02/06/17 10:32 Dose: 40 mg Hydralazine HCl (Apresoline) 25 mg PO Q8H [facility] Last Admin: 02/06/17 10:32 Dose: 25 mg Azithromycin 500 mg/ Sodium (Chloride) 250 mls @ 167 mls/hr IVPB Q24H [facility] Last Admin: 02/05/17 14:35 Dose: 167 mls/hr Ibuprofen (Motrin Tab) 600 mg PO TID PRN PRN Reason: Headache Last Admin: 02/04/17 09:46 Dose: 600 mg Losartan Potassium (Cozaar) 100 mg PO DAILY [facility] Last Admin: 02/06/17 10:32 Dose: 100 mg Methylprednisolone (Solu-Medrol) 40 mg IVP Q12 [facility] Last Admin: 02/06/17 10:33 Dose: 40 mg Oxycodone/Acetaminophen (Percocet 5/325 Mg Tab) 1 tab PO Q4 PRN PRN Reason: Pain, moderate (4-7) Stop: 02/07/17 20:00 Pantoprazole Sodium (Protonix Ec Tab) 40 mg PO DAILY [facility] Last Admin: 02/06/17 10:32 Dose: 40 mg Promethazine HCl/Dextromethorphan (Phenergan Dm Syrup) 5 ml PO Q6H PRN PRN Reason: Cough Last Admin: 02/05/17 22:04 Dose: 5 ml Rosuvastatin Calcium (Crestor) 20 mg PO HS [facility] Last Admin: 02/05/17 22:04 Dose: 20 mg Fluticasone/Salmeterol (Advair Diskus 250/50) 1 puff INH RQ12 [facility] Last Admin: 02/06/17 07:39 Dose: 1 puff - Labs Labs: PT 11.9 SECONDS (9.7-12.2) 02/03/17 20:08 INR 1.1 02/03/17 20:08 APTT 32 SECONDS (21-34) 02/03/17 20:08 - Constitutional Appears: Well, No Acute Distress - Respiratory Exam Respiratory Exam: Rhonchi, NORMAL BREATHING PATTERN - Cardiovascular Exam Cardiovascular Exam: REGULAR RHYTHM, +S1, +S2 Assessment and Plan - Assessment and Plan (Free Text) Assessment: A/P 61 YR old female admitted for sob, chest pain/ copd vss- stable pt clinically improved after steroids s/p Stress test, by Dr. Stewart yesterday - incomplete - exercised for 2 minutes of Pierce protocol the test stopped because of shortness of breath no chest pain , no acute EKG changes and recommends Follow with the [facility]/W Dr. Perdomo, stable for discharge home today and f/u with Dr. Perdomo offic ein 1 week Discharge plan discussed with patient, who understands and agrees withplan Pt instructed to returns to ed IF SYMPTOMS returns RX - eprescribed to [facility]
[2017-02-06] MEDS: Azithromycin 500 MG in Sodium Chloride 0.9% 250 ML IVPB SCH (13:39)
[2017-02-06 17:11] VITALS: PULSE 72
--- NOTE | 2017-02-06 19:44 | CARD ---
APPROVED REPORT Protocol: MARY Test Type: NUCLEAR STRESS Test Indications: CP SOB Target HR: 160 bpm Resting ECG: normal Resting Heart Rate: 106 bpm Resting Blood Pressure: 128/80mmHg submaximum (85%): 136 bpm TEST SUMMARY [id number]:02..1.0111/.0. PRETESTWARM-UP05:[id number]/80.0. EXERCISESTAGE 101:[id number]/80.1. AXMPAJTV40:[id number]/80.2. POST EXERCISE Reason for Termination: Fatigue Dyspnea Target HR: No Max HR: 134 bpm 85% of Maximum Predicted HR: 160 bpm Exercise duration: 01:54 min:sec, 1 Stage Exercise capacity: 4.6METs Max Blood Pressure: 128/80mmHg Blood Pressure response to exercise: normal resting BP - appropriate response Heart Rate response to exercise: appropriate Chest Pain: No, none Angina index: 0 Arrhythmia: Yes, ventricular premature beats ST Change: Yes, Depression upsloping Deviation: 0 mm INTERPRETATION Stress EKG Conclusion: Normal stress test EXAM: Myocardial Perfusion REST/STRESS Imaging Protocol The imaging protocol used to acquire images was Rest Tc-99m/stress Tc-99m 1 day Rest Spect myocardial perfusion imaging was performed in supine position 45 minutes following the injection of 12.4 mCi of Tc-99 Myoview. Gated Stress Spect was performed 65 minutes after intravenous 31.3 mci Tc-99 Myoview injection. The images were gated to evaluate regional wall motion and calculate ventricular ejection fraction.Images were reconstructed using backfilter projection method in short horizontal and verticle long axis. Spect slices were generated. RESTING DATA ZDB558.13tqCV0.20L/min ESV67.00mlMyocardial Rjho760.00g Av. Heart Rate96.00bpm EF56.00% STRESS DATA GAS610.01cjNU97.00L/min ESV57.00mlMyocardial Aeze919.00g EF63.00% Regional WT score at stress:0.00 Regional WM score at stress:0.00 Summed WT score at stress:19.00 Av. Heart Eoht479.00bpmSummed WM score at stress:1.00 LV Perf. Quant 17 Seg. SSS4.00 17 Seg. SRS11.00 17 Seg. SDS0.00 Stress Defect Extent (% LAD)0.00Rest Defect Extent (% LAD)8.80Rev. Defect Extent (% LAD)0.00 Stress Defect Extent (% LCX)32.50Rest Defect Extent (% LCX)50.00Rev. Defect Extent (% LCX)1.30 Stress Defect Extent (% RCA)0.00Rest Defect Extent (% RCA)0.00Rev. Defect Extent (% RCA)0.00 Stress Defect Extent (% BETY)6.30Rest Defect Extent (% BETY)19.30Rev. Defect Extent (% BETY)0.20 Left Ventricle LV Size/Shape: The left ventricle is normal size. LV Function:Left ventricle systolic function is normal. The Ejection Fraction is 63% up from 56% at rest. Regional Wall Motion:No regional wall motion abnormalities noted. Metabolism/Perfusion Reversible/Irreversible: There is a medium irreversible perfusion/metabolism defect in the Mid-anterolateral wall. Larger at rest, probable breast artifact, no EKG changes CP or wall motion abnormalities. Conclusion 1. Left ventricle systolic function is normal. 2. The Ejection Fraction is 63% up from 56% at rest. 3. No regional wall motion abnormalities noted. 4. No Ischemia, decreased exercise tolerance.
== END 2017-02-06 15:30 | disposition home or self-care (01) | DRG 313 ==
LOC: C.ER 19:52 → C.5T 22:14 → OBSVTOIN 02-04 16:40
PROVIDERS: ADMIT Internal Medicine; ATTEND Internal Medicine
DX: R07.9 Chest pain, unspecified (principal); I10 Essential (primary) hypertension; J44.9 Chronic obstructive pulmonary disease, unspecified; M06.9 Rheumatoid arthritis, unspecified; Z87.891 Personal history of nicotine dependence